=== PATIENT | female | born 1980 | race African-American/Black ===

== ENCOUNTER 2022-06-11 13:42 | Inpatient (IN) | payer OTHER ==
[2022-06-11] MEDS ORDERED: METOCLOPRAMIDE HCL INJECTION 10 MG/2 ML VIAL IVPB ONE (14:41)
[2022-06-11] MEDS ORDERED: MECLIZINE HCL 25 MG TABLET (FP) PO ONE (14:43)
[2022-06-11] MEDS ORDERED: MECLIZINE HCL 25 MG TABLET (FP) ONE (14:50)
[2022-06-11] MEDS ORDERED: METOCLOPRAMIDE HCL INJECTION 10 MG/2 ML VIAL ONE (14:50)
[2022-06-11 15:09] LABS: BASO % 0.3 % (0-2.0); EOS % 2.2 % (0-4.5); HEMATOCRIT 37.4 % (32.4-45.2); HEMOGLOBIN 12.2 GM/dL (10.7-15.3); LYMPH % 33.1 % (8-40); MCH 28.8 pg (25.7-33.7); MCHC 32.6 g/dl (32.0-36.0); MEAN CELL VOLUME 88.5 fl (80-96); MEAN PLT VOLUME 7.9 fl (7.5-11.1); MONO % 8.5 % (3.8-10.2); NEUT % 55.9 % (42.8-82.8); PLATELET COUNT 294 10^3/uL (134-434); RBC 4.23 M/mm3 (3.60-5.2); RDW 14.6 % (11.6-15.6); WHITE BLOOD COUNT 7.7 K/mm3 (4.0-10.0)
[2022-06-11 15:32] LABS: CHLORIDE 109 mmol/L (98-107); SODIUM 143 mmol/L (136-145)
[2022-06-11 15:34] LABS: ANION GAP 4 MMOL/L (8-16); CO2 30 mmol/L (21-32); GLUCOSE,RANDOM 88 mg/dL (74-106); MAGNESIUM 1.9 mg/dL (1.8-2.4)
[2022-06-11 15:37] LABS: CREATININE 0.8 mg/dL (0.55-1.3); PHOSPHOROUS 2.8 mg/dL (2.5-4.9); SGOT/AST 18 U/L (15-37); SGPT/ALT 34 U/L (13-61)
[2022-06-11 15:38] LABS: BILIRUBIN,TOTAL 0.3 mg/dL (0.2-1)
[2022-06-11 15:39] LABS: TOT PROT 7.9 g/dl (6.4-8.2)
[2022-06-11 15:40] LABS: ALK PHOS 68 U/L (45-117)
[2022-06-11] MEDS ORDERED: ACETAMINOPHEN 1000 MG/100 ML BAG IVPB ONE (18:42)
[2022-06-11] MEDS ORDERED: ACETAMINOPHEN INJECTION 100 ML IVPB ONE (18:43)
[2022-06-11] MEDS ORDERED: CEFTRIAXONE 1,000 MG in DEXTROSE 5%-WATER - 50 ML IVPB ONE (18:54)
[2022-06-11] MEDS ORDERED: CEFTRIAXONE 1 GM/50 ML BAG ONE (21:57)
[2022-06-11] MEDS ORDERED: SODIUM CHLORIDE 0.9% 500 ML INFUS.BAG IV ONE (22:28)
[2022-06-11] MEDS ORDERED: ACETAMINOPHEN 325 MG TABLET (FP) PO PRN (23:37)
[2022-06-12] MEDS: INSULIN SLIDING SCALE (NOVOLOG) 1 VIAL SQ SCH ×4 (06:37→21:36)
[2022-06-12 09:00] LABS: PH,URINE 5.5 (5.0-8.0); URINE APPEARANCE CLOUDY; URINE BILIRUBIN NEGATIVE (NEGATIVE); URINE COLOR YELLOW; URINE GLUCOSE (UA) NEGATIVE (NEGATIVE); URINE KETONE NEGATIVE (NEGATIVE); URINE LEUK ESTERASE NEGATIVE (NEGATIVE); URINE NITRITE NEGATIVE (NEGATIVE); URINE PROTEIN NEGATIVE (NEGATIVE); URINE UROBILINOGEN 0.2 mg/dL (0.2-1.0)
[2022-06-12] MEDS: ENOXAPARIN NA (PORCINE) 40 MG/0.4 ML DISP.SYRIN SQ SCH (09:34)
[2022-06-12] MEDS: AMITRIPTYLINE HCL 25 MG TABLET PO SCH (09:35)
[2022-06-12] MEDS: LACTATED RINGERS SOLUTION 1,000 ML/1,000 ML INFUS.BAG IV SCH ×2 (11:13→20:06)
[2022-06-12] MEDS: POLYETHYLENE GLYCOL (HEALTHYLAX) 3350 17 GM PACKET PO SCH ×2 (11:14→21:36)
[2022-06-12] MEDS: PSYLLIUM 5.85 GM PACKET PO SCH ×2 (11:43→21:36)
[2022-06-12 11:49] LABS: HEMATOCRIT 36.2 % (32.4-45.2); HEMOGLOBIN 11.9 GM/dL (10.7-15.3); MCH 28.5 pg (25.7-33.7); MCHC 32.7 g/dl (32.0-36.0); MEAN CELL VOLUME 87.1 fl (80-96); MEAN PLT VOLUME 8.1 fl (7.5-11.1); PLATELET COUNT 292 10^3/uL (134-434); RBC 4.16 M/mm3 (3.60-5.2); RDW 14.6 % (11.6-15.6); WHITE BLOOD COUNT 6.9 K/mm3 (4.0-10.0)
[2022-06-12 12:21] LABS: CALCIUM 9.1 mg/dL (8.5-10.1)
[2022-06-12 12:23] LABS: BLOOD UREA NITROGEN 13.5 mg/dL (7-18)
[2022-06-12 12:24] LABS: ALBUMIN 3.6 g/dl (3.4-5.0)
[2022-06-12 12:25] LABS: CREATININE 0.8 mg/dL (0.55-1.3)
[2022-06-12 12:26] LABS: BILIRUBIN,DIRECT 0.1 mg/dL (0.0-0.2); PHOSPHOROUS 2.6 mg/dL (2.5-4.9)
[2022-06-12 12:27] LABS: TOT PROT 7.4 g/dl (6.4-8.2)
[2022-06-12 12:28] LABS: BILIRUBIN,TOTAL 0.3 mg/dL (0.2-1)
[2022-06-12] MEDS ORDERED: PEG 3350/NA SULF BICARB CL/KCL 4000 ML SOLN.RECON PO ONE ×2 (13:13→15:00)
[2022-06-12 15:04] VITALS: BMI 27.9
[2022-06-12] MEDS ORDERED: BISACODYL 5 MG TABLET.DR (FP) PO ONE (20:00)
[2022-06-12] MEDS ORDERED: ATORVASTATIN CA 20 MG TABLET (FP) PO SCH (22:00)
[2022-06-13] MEDS: LACTATED RINGERS SOLUTION 1,000 ML/1,000 ML INFUS.BAG IV SCH (03:33)
[2022-06-13] MEDS: INSULIN SLIDING SCALE (NOVOLOG) 1 VIAL SQ SCH ×3 (06:38→16:34)
[2022-06-13 09:16] LABS: COCAINE, UR NEGATIVE (NEGATIVE); OPIATES, URI NEGATIVE (NEGATIVE); PHENCYCLIDINE,URINE NEGATIVE (NEGATIVE); URINE BARBITURATES NEGATIVE (NEGATIVE)
[2022-06-13 09:17] LABS: METHADONE, UR NEGATIVE (NEGATIVE)
[2022-06-13] MEDS: ENOXAPARIN NA (PORCINE) 40 MG/0.4 ML DISP.SYRIN SQ SCH (09:19)
[2022-06-13 09:29] LABS: URINE AMPHETAMINES NEGATIVE (NEGATIVE); URINE BENZODIAZEPINES NEGATIVE (NEGATIVE)
[2022-06-13 13:06] VITALS: RESP 18
[2022-06-13 13:49] VITALS: BP 142/85; PULSE 75; TEMP 97.8
[2022-06-13] MEDS: AMITRIPTYLINE HCL 25 MG TABLET PO SCH (14:04)
[2022-06-13] MEDS: PSYLLIUM 5.85 GM PACKET PO SCH (14:05)
[2022-06-13] MEDS: POLYETHYLENE GLYCOL (HEALTHYLAX) 3350 17 GM PACKET PO SCH (14:06)
== END 2022-06-13 17:31 | disposition home or self-care (01) | DRG 422 ==
LOC: JER 13:42 → JERBED 18:46 → J5S 06-12 00:34
PROVIDERS: ADMIT Internal Medicine; ATTEND Internal Medicine
PROC: 0DJD8ZZ Inspection of Lower Intestinal Tract, Via Natural or Artificial Opening Endoscopic (ICD-10-PCS; principal; 2022-06-13 13:30)
DX: E86.0 Dehydration (principal); R42 Dizziness and giddiness; E11.9 Type 2 diabetes mellitus without complications; E78.5 Hyperlipidemia, unspecified; R10.32 Left lower quadrant pain; E66.9 Obesity, unspecified; Z68.28 Body mass index [BMI] 28.0-28.9, adult; I10 Essential (primary) hypertension; K64.8 Other hemorrhoids; R11.2 Nausea with vomiting, unspecified; R14.0 Abdominal distension (gaseous)
CPT/HCPCS: 0241U-QW; 36415; 70450-TC; 71045-TC-FY; 74177-TC; 80048; 80053; 80061; 80076; 80307; 81003; 82962; 83735; 84100; 84484; 84703; 85025; 85027; 93005; 93010; 97116-GP; 97161-GP; 99285-25; Q9967

== ENCOUNTER 2022-09-29 09:06 | Emergency (ER) | payer OTHER ==
[2022-09-29 09:24] VITALS: BP 132/86; PULSE 105; RESP 18; TEMP 98; BMI 27.4
[2022-09-29] MEDS ORDERED: IBUPROFEN 600 MG TABLET (FP) PO ONE ×2 (10:04→12:32)
[2022-09-29] MEDS ORDERED: IBUPROFEN 400 MG TABLET (FP) PO ONE (12:33)
== END 2022-09-29 12:36 | disposition home or self-care (01) ==
LOC: JER 09:06
DX: U07.1 COVID-19 (principal)
CPT/HCPCS: 71046-TC-FY; 99284-25; C9803-CS; U0003; U0005

== ENCOUNTER 2022-12-02 03:33 | Emergency (ER) | payer OTHER ==
[2022-12-02 03:44] VITALS: BP 128/66; PULSE 95; RESP 20; TEMP 98; BMI 31.8
[2022-12-02] MEDS ORDERED: MAG HYDROX/AL HYDROX/SIMETH -MYLANTA- ORAL SUSPENSION PO ONE (04:20)
[2022-12-02] MEDS ORDERED: SUCRALFATE 1 GM TABLET (FP) PO ONE (04:20)
[2022-12-02] MEDS ORDERED: ACETAMINOPHEN 1000 MG/100 ML BAG IVPB ONE (04:20)
[2022-12-02] MEDS ORDERED: FAMOTIDINE 20 MG/50 ML IVPB 20 MG/50 ML MG IVPB ONE ×2 (04:20→04:29)
[2022-12-02] MEDS ORDERED: SUCRALFATE 1 GM TABLET (FP) ONE (04:28)
[2022-12-02] MEDS ORDERED: ACETAMINOPHEN INJECTION 100 ML IVPB ONE (04:28)
[2022-12-02] MEDS ORDERED: MAG HYDROX/AL HYDROX/SIMETH 30 ML UNIT-DOSE CUP ONE (04:28)
[2022-12-02 04:54] LABS: VENOUS BASE EXCESS 1.3 mmol/L (-2-2); VENOUS O2 SATURATION 35.2 % (70-80); VENOUS PCO2 56.9 mmHg (38-52); VENOUS PH 7.318 (7.310-7.410)
[2022-12-02 05:20] LABS: INR 1.08 (0.83-1.09); PROTHROMBIN TIME (PATIENT) 12.4 SEC (9.7-13.0)
[2022-12-02 05:23] LABS: ACTIVATED PTT 35.2 SECONDS (25.2-36.5)
[2022-12-02 05:25] LABS: ALBUMIN 3.8 g/dl (3.4-5.0); BASO % 0.6 % (0-2.0); BLOOD UREA NITROGEN 14.1 mg/dL (7-18); EOS % 2.2 % (0-4.5); HEMATOCRIT 35.7 % (32.4-45.2); HEMOGLOBIN 11.7 GM/dL (10.7-15.3); LYMPH % 39.7 % (8-40); MCH 29.3 pg (25.7-33.7); MCHC 32.9 g/dl (32.0-36.0); MEAN CELL VOLUME 89.1 fl (80-96); MONO % 10.8 % (3.8-10.2); NEUT % 46.7 % (42.8-82.8); PLATELET COUNT 278 10^3/uL (134-434); RDW 14.8 % (11.6-15.6); WHITE BLOOD COUNT 6.9 K/mm3 (4.0-10.0)
[2022-12-02 05:28] LABS: CREATININE 0.8 mg/dL (0.55-1.3)
[2022-12-02 05:30] LABS: BILIRUBIN,TOTAL 0.3 mg/dL (0.2-1)
== END 2022-12-02 08:00 | disposition home or self-care (01) ==
LOC: JER 03:33
PROC: 3E033GC Introduction of Other Therapeutic Substance into Peripheral Vein, Percutaneous Approach (ICD-10-PCS; principal; 2022-12-02)
DX: R06.09 Other forms of dyspnea (principal); R05.9 Cough, unspecified
CPT/HCPCS: 0241U-QW; 36415; 71275-TC; 74177-TC; 80053; 82803; 83690; 84484; 84703; 85025; 85610; 85730; 86850; 86900; 86901; 93005; 93010; 99285-25; Q9967

== ENCOUNTER 2024-02-14 11:40 | Emergency (ER) | payer SELFPAY ==
[2024-02-14 11:47] VITALS: BP 134/90; PULSE 89; RESP 18; TEMP 98.7; BMI 34.9
[2024-02-14 12:30] LABS: THROAT:GRP A STREP NOT DETECTED (NOTDETECTED)
[2024-02-14 12:37] LABS: BASO % 0.6 % (0-2.0); EOS % 3.8 % (0-4.5); HEMATOCRIT 36.6 % (32.4-45.2); LYMPH % 31.2 % (8-40); MCH 28.7 pg (25.7-33.7); MCHC 32.8 g/dl (32.0-36.0); MEAN CELL VOLUME 87.5 fl (80-96); MEAN PLT VOLUME 7.8 fl (7.5-11.1); MONO % 10.5 % (3.8-10.2); NEUT % 53.9 % (42.8-82.8); PLATELET COUNT 268 10^3/uL (134-434); RBC 4.18 M/mm3 (3.60-5.2); RDW 14.8 % (11.6-15.6); WHITE BLOOD COUNT 6.5 K/mm3 (4.0-10.0)
[2024-02-14 12:39] LABS: URINE APPEARANCE Error; URINE BILIRUBIN NEGATIVE (NEGATIVE); URINE COLOR YELLOW; URINE GLUCOSE (UA) NEGATIVE (NEGATIVE); URINE KETONE NEGATIVE (NEGATIVE); URINE LEUK ESTERASE NEGATIVE (NEGATIVE); URINE NITRITE NEGATIVE (NEGATIVE); URINE PROTEIN NEGATIVE (NEGATIVE); URINE UROBILINOGEN 0.2 mg/dL (0.2-1.0)
[2024-02-14 13:18] LABS: POTASSIUM 4.7 mmol/L (3.5-5.1)
[2024-02-14 13:19] LABS: CALCIUM 9.2 mg/dL (8.5-10.1)
[2024-02-14 13:20] LABS: ALBUMIN 3.8 g/dl (3.4-5.0); BLOOD UREA NITROGEN 14.8 mg/dL (7-18)
[2024-02-14 13:23] LABS: CREATININE 0.8 mg/dL (0.55-1.3)
[2024-02-14] MEDS ORDERED: FAMOTIDINE 20 MG TABLET ONE (13:23)
[2024-02-14] MEDS ORDERED: MAG HYDROX/AL HYDROX/SIMETH 30 ML UNIT-DOSE CUP ONE (13:23)
[2024-02-14 13:25] LABS: BILIRUBIN,TOTAL 0.4 mg/dL (0.2-1); TOT PROT 8.1 g/dl (6.4-8.2)
[2024-02-14] MEDS: MAG HYDROX/AL HYDROX/SIMETH -MYLANTA- ORAL SUSPENSION PO ONE (13:26)
[2024-02-14] MEDS: FAMOTIDINE 20 MG TABLET PO ONE (13:26)
== END 2024-02-14 13:57 | disposition home or self-care (01) ==
LOC: JERFT 11:40 → JER 11:40 → JERFT 13:57
DX: R05.9 Cough, unspecified (principal); R09.81 Nasal congestion; R10.10 Upper abdominal pain, unspecified; R41.0 Disorientation, unspecified; K21.00 Gastro-esophageal reflux disease with esophagitis, without bleeding; Z20.822 Contact with and (suspected) exposure to COVID-19
CPT/HCPCS: 0241U-QW; 36415; 80053; 81003; 82962; 83690; 84484; 84703; 85025; 87086; 87651; 93005; 93010; 99284-25

== ENCOUNTER 2024-05-19 08:59 | Emergency (ER) | payer OTHER ==
[2024-05-19 09:05] VITALS: BP 133/84; PULSE 77; RESP 18; TEMP 98.6; BMI 26.9
[2024-05-19] MEDS ORDERED: METOCLOPRAMIDE HCL INJECTION 10 MG/2 ML VIAL ONE (09:36)
[2024-05-19] MEDS ORDERED: ACETAMINOPHEN INJECTION 100 ML IVPB ONE (09:36)
[2024-05-19] MEDS: SODIUM CHLORIDE 0.9% 500 ML INFUS.BAG IV ONE (10:00)
[2024-05-19] MEDS: METOCLOPRAMIDE HCL INJECTION 10 MG/2 ML VIAL IVPB ONE (10:05)
[2024-05-19] MEDS: ACETAMINOPHEN 1000 MG/100 ML BAG IVPB ONE (10:05)
[2024-05-19 10:14] LABS: BASO % 0.9 % (0-2.0); EOS % 2.9 % (0-4.5); HEMATOCRIT 36.4 % (32.4-45.2); HEMOGLOBIN 12.1 GM/dL (10.7-15.3); LYMPH % 36.5 % (8-40); MCH 29.3 pg (25.7-33.7); MCHC 33.1 g/dl (32.0-36.0); MEAN CELL VOLUME 88.6 fl (80-96); MEAN PLT VOLUME 7.5 fl (7.5-11.1); MONO % 9.1 % (3.8-10.2); NEUT % 50.6 % (42.8-82.8); PLATELET COUNT 275 10^3/uL (134-434); RBC 4.11 M/mm3 (3.60-5.2); RDW 13.9 % (11.6-15.6); WHITE BLOOD COUNT 6.1 K/mm3 (4.0-10.0)
[2024-05-19 10:15] LABS: PH,URINE 5.5 (5.0-8.0); URINE APPEARANCE CLEAR; URINE BILIRUBIN NEGATIVE (NEGATIVE); URINE COLOR YELLOW; URINE GLUCOSE (UA) NEGATIVE (NEGATIVE); URINE KETONE NEGATIVE (NEGATIVE); URINE LEUK ESTERASE NEGATIVE (NEGATIVE); URINE NITRITE NEGATIVE (NEGATIVE); URINE PROTEIN NEGATIVE (NEGATIVE); URINE UROBILINOGEN 0.2 mg/dL (0.2-1.0)
[2024-05-19 10:18] LABS: HCG,QUALITATIVE URINE Negative
[2024-05-19 10:43] LABS: POTASSIUM 4.7 mmol/L (3.5-5.1)
[2024-05-19 10:46] LABS: ALBUMIN 3.6 g/dl (3.4-5.0); BLOOD UREA NITROGEN 12.5 mg/dL (7-18)
[2024-05-19 10:48] LABS: CREATININE 0.9 mg/dL (0.55-1.3)
[2024-05-19 10:50] LABS: BILIRUBIN,TOTAL 0.3 mg/dL (0.2-1); TOT PROT 7.8 g/dl (6.4-8.2)
[2024-05-19 11:05] LABS: THROAT:GRP A STREP NOT DETECTED (NOTDETECTED)
[2024-05-19] MEDS ORDERED: KETOROLAC TROMETHAMINE 30 MG/1 ML VIAL ONE (11:21)
[2024-05-19] MEDS: KETOROLAC TROMETHAMINE 30 MG/1 ML VIAL IVPUSH ONE (11:24)
== END 2024-05-19 14:30 | disposition home or self-care (01) ==
LOC: JER 08:59
PROC: 3E033NZ Introduction of Analgesics, Hypnotics, Sedatives into Peripheral Vein, Percutaneous Approach (ICD-10-PCS; principal; 2024-05-19)
PROC: 3E0333Z Introduction of Anti-inflammatory into Peripheral Vein, Percutaneous Approach (ICD-10-PCS; 2024-05-19)
PROC: 3E033GC Introduction of Other Therapeutic Substance into Peripheral Vein, Percutaneous Approach (ICD-10-PCS; 2024-05-19)
DX: R51.9 Headache, unspecified (principal); D25.9 Leiomyoma of uterus, unspecified; M79.10 Myalgia, unspecified site; R10.32 Left lower quadrant pain; R11.0 Nausea; M54.9 Dorsalgia, unspecified; M25.471 Effusion, right ankle; M25.472 Effusion, left ankle; Z20.822 Contact with and (suspected) exposure to COVID-19
CPT/HCPCS: 0241U-QW; 36415; 74177-TC; 80053; 81003; 84703; 85025; 87086; 87651; 99285-25; J0131; Q9967

== ENCOUNTER 2024-09-08 09:17 | Emergency (ER) | payer OTHER ==
[2024-09-08 09:27] VITALS: BP 131/82; PULSE 85; RESP 18; TEMP 97.6; BMI 28.6
[2024-09-08 10:20] LABS: BASO % 0.7 % (0-2.0); EOS % 2.4 % (0-4.5); LYMPH % 31.5 % (8-40); MCH 28.9 pg (25.7-33.7); MCHC 33.2 g/dl (32.0-36.0); MEAN CELL VOLUME 87.2 fl (80-96); MEAN PLT VOLUME 7.7 fl (7.5-11.1); MONO % 9.6 % (3.8-10.2); NEUT % 55.8 % (42.8-82.8); PLATELET COUNT 270 10^3/uL (134-434); RBC 4.13 M/mm3 (3.60-5.2); RDW 14.3 % (11.6-15.6); WHITE BLOOD COUNT 6.4 K/mm3 (4.0-10.0)
[2024-09-08 10:43] LABS: POTASSIUM 4.7 mmol/L (3.5-5.1)
[2024-09-08 10:45] LABS: ALBUMIN 3.6 g/dl (3.4-5.0); BLOOD UREA NITROGEN 13.8 mg/dL (7-18); CALCIUM 9.1 mg/dL (8.5-10.1)
[2024-09-08 10:49] LABS: CREATININE 0.9 mg/dL (0.55-1.3)
[2024-09-08 10:50] LABS: BILIRUBIN,TOTAL 0.2 mg/dL (0.2-1); TOT PROT 7.8 g/dl (6.4-8.2)
== END 2024-09-08 11:48 | disposition home or self-care (01) ==
LOC: JER 09:17
DX: R42 Dizziness and giddiness (principal); Z20.822 Contact with and (suspected) exposure to COVID-19
CPT/HCPCS: 0241U-QW; 36415; 80053; 82962; 84484; 85025; 93005; 93010; 99284-25